=== PATIENT | female | born 1980 | race African-American/Black ===

== ENCOUNTER 2017-06-09 18:18 | Emergency (ER) | payer OTHER, SELFPAY ==
[~2017-06-09] VITALS: Ht 165.1 cm; Wt 66.0 kg
[2017-06-09] MEDS ORDERED: SODIUM CHLORIDE FLUSH 10ML SYR IVF ONE (18:30)
[2017-06-09] MEDS ORDERED: SODIUM CHLORIDE 0.9% 1,000ML IVBOLUS ONE (18:30)
[2017-06-09 18:55] LABS: HEMATOCRIT 42.9 % (34.6-47.8); HEMOGLOBIN 14.6 g/dL (11.7-16.4); WHITE BLOOD COUNT 7.1 x10^3/uL (3.4-10)
[2017-06-09 19:00] LABS: BLOOD UREA NITROGEN 11 mg/dL (7-18)
[2017-06-09] MEDS ORDERED: PLEASE ENTER ALLERGIES MC SCH ×2 (19:00)
[2017-06-09 20:13] VITALS: BP 110/62
== END 2017-06-09 20:15 | disposition home or self-care (01) ==
LOC: ED 20:09
DX: R55 Syncope and collapse (principal)
CPT/HCPCS: 36415; 70450; 80048; 82040; 85025; 93005; 96360; 99285; J7030